=== PATIENT | female | born 1995 | race Caucasian/White ===

== ENCOUNTER 2021-05-03 10:23 | Emergency (ER) | payer BC ==
[~2021-05-03] VITALS: Ht 167.6 cm; Wt 113.0 kg
[2021-05-03 10:32] VITALS: BP 133/77
--- NOTE | 2021-05-03 10:59 | PHYS DOC ---
Past History Past Medical History: Anxiety Additional Past Medical Histor: Ovarian cyst (LENNY GARCIA ) Past Surgical History: No Surgical History (LENNY GARCIA ) Smoking: Non-smoker Alcohol Use: None Drug Use: Marijuana (LENNY GARCIA DO) General Adult EDM: Chief Complaint: ABDOMINAL PAIN HPI: HPI: Patient is a 25-year-old female who presents to the emergency department for left upper and left lower quadrant pain that started this morning at 815. She describes the pain as a sharp pain. She rates it 8 out of 10. No treatment prior to arrival. No alleviating or aggravating factors. Patient is also reporting hot feeling and chills as well as intermittent lightheadedness. Patient denies any alcohol use, nausea, vomiting, diarrhea, fevers, urinary symptoms, vaginal bleeding. Patient reports that she has a history of ovarian cyst but states that this does not feel like 1. (BHASKAR KIM APRN) Review of Systems: Review of Systems: Constitutional: negative unless reported in HPI Eyes: negative unless reported in HPI HENT: negative unless reported in HPI Respiratory: negative unless reported in HPI Cardiovascular: negative unless reported in HPI GI: negative unless reported in HPI : negative unless reported in HPI Musculoskeletal: negative unless reported in HPI Integument: negative unless reported in HPI Neurologic: negative unless reported in HPI Endocrine: negative unless reported in HPI Lymphatic: negative unless reported in HPI Psychiatric: negative unless reported in HPI (BHASKAR KIM APRN) Physical Exam: PE: Constitutional: Well developed, well nourished, no acute distress, non-toxic appearance. [] HENT: Normocephalic, atraumatic, bilateral external ears normal, oropharynx moist, no oral exudates, nose normal. [] Eyes: PERRLA, EOMI, conjunctiva normal, no discharge. [] Neck: Normal range of motion, no tenderness, supple, no stridor. [] Cardiovascular:Heart rate regular rhythm, no murmur [] Lungs & Thorax: Bilateral breath sounds clear to auscultation [] Abdomen: Bowel sounds normal, soft, obese, no rigidity, no guarding, tenderness with palpation to left upper and lower quadrant. No masses, no pulsatile masses. [] Skin: Warm, dry, no erythema, no rash. [] Back: No tenderness, no CVA tenderness. [] Extremities: No tenderness, no cyanosis, no clubbing, ROM intact, no edema. [] Neurologic: Alert and oriented X 3, normal motor function, normal sensory function, no focal deficits noted. [] Psychologic: Affect normal, judgement normal, mood normal. [] (BHASKAR KIM APRN) Current Patient Data: Labs: Laboratory Tests Test 05/03/21 11:05 05/03/21 11:25 05/03/21 11:30 White Blood Count 11.0 x10^3/uL Red Blood Count 4.25 x10^6/uL Hemoglobin 12.2 g/dL Hematocrit 37.1 % Mean Corpuscular Volume 87 fL Mean Corpuscular Hemoglobin 29 pg Mean Corpuscular Hemoglobin Concent 33 g/dL Red Cell Distribution Width 14.3 % Platelet Count 271 x10^3/uL Neutrophils (%) (Auto) 74 % Lymphocytes (%) (Auto) 15 % Monocytes (%) (Auto) 6 % Eosinophils (%) (Auto) 4 % Basophils (%) (Auto) 1 % Neutrophils # (Auto) 8.1 x10^3uL Lymphocytes # (Auto) 1.7 x10^3/uL Monocytes # (Auto) 0.7 x10^3/uL Eosinophils # (Auto) 0.5 x10^3/uL Basophils # (Auto) 0.1 x10^3/uL Sodium Level 138 mmol/L Potassium Level 4.0 mmol/L Chloride Level 104 mmol/L Carbon Dioxide Level 25 mmol/L Anion Gap 9 Blood Urea Nitrogen 12 mg/dL Creatinine 0.9 mg/dL Estimated GFR (Cockcroft-Gault) 76.9 BUN/Creatinine Ratio 13 Glucose Level 90 mg/dL Calcium Level 8.5 mg/dL Total Bilirubin 0.5 mg/dL Aspartate Amino Transf (AST/SGOT) 16 U/L Alanine Aminotransferase (ALT/SGPT) 20 U/L Alkaline Phosphatase 86 U/L Total Protein 7.5 g/dL Albumin 3.8 g/dL Albumin/Globulin Ratio 1.0 Lipase 73 U/L Urine Collection Type Clean catch Urine Color Yellow Urine Clarity Hazy Urine pH 5.5 Urine Specific [place] >=1.030 Urine Protein Neg Urine Glucose (UA) Neg mg/dL Urine Ketones (Stick) Neg mg/dL Urine Blood Large Urine Nitrite Neg Urine Bilirubin Neg Urine Urobilinogen Dipstick 0.2 mg/dL Urine Leukocyte Esterase Neg Urine RBC 11-20 /HPF Urine WBC Occ /HPF Urine Squamous Epithelial Cells Many /LPF Urine Bacteria 0 /HPF Urine Test Negative Current Medications Medications (Trade) Dose Ordered Sig/Magui Route PRN Reason Start Time Stop Time Status Last Admin Dose Admin Sodium Chloride 1,000 ml @ 1,000 mls/hr Q1H IV 05/03/21 11:00 05/03/21 11:59 DC 05/03/21 11:26 Fentanyl Citrate (Fentanyl 2ml Vial) 50 mcg 1X ONCE IVP 05/03/21 11:00 05/03/21 11:07 DC 05/03/21 11:27 Iohexol (Omnipaque 300 Mg/ml) 75 ml 1X ONCE IV 05/03/21 11:00 05/03/21 11:07 DC 05/03/21 11:09 Fentanyl Citrate (Fentanyl 2ml Vial) 50 mcg 1X ONCE IVP 05/03/21 12:00 05/03/21 12:01 DC (BHASKAR KIM APRN) EKG: EKG: [] (BHASKAR KIM APRN) Radiology/Procedures: Radiology/Procedures: []PROCEDURE: CT ABD PELV W/ IV CONTRST ONLY EXAMINATION: CT ABDOMEN+PELVIS W CLINICAL HISTORY: Left-sided abdominal pain. TECHNIQUE: CT of the abdomen and pelvis was performed using standard technique, scanning from just above the dome of the diaphragm to the symphysis pubis following administration of intravenous contrast. CT Dose Reduction Employed: One or more of the following individualized dose reduction techniques were utilized for this examination: 1. Automated exposure control 2. Adjustment of the mA and/or kV according to patient size 3. Use of iterative reconstruction technique. COMPARISON: None FINDINGS: Minimal dependent bibasilar subsegmental atelectasis. Liver, gallbladder, pancreas, spleen, adrenal glands, and kidneys unremarkable. Minimally filled urinary bladder suboptimally evaluated. Uterus and ovaries unremarkable on limited evaluation. No bowel dilation or definite wall thickening. Mild rectal stool retention. Appendix within normal limits. No abdominal aortic or iliac artery aneurysm. No evidence of acute osseous abnormality. IMPRESSION: No evidence of acute abdominopelvic abnormality. Mild rectal stool retention. Electronically signed by: Arpit Arreguin DO (05/03/2021 11:29 AM) [facility] DICTATED AND SIGNED BY: ARPIT ARREGUIN DO DATE: 05/03/21 1122 CC: NIDHI WALKER; BHASKAR KIM APRN ~MTH0 0 (BHASKAR KIM APRN) Heart Score: C/O Chest Pain: N/A Risk Factors: Risk Factors: DM, Current or recent (<one month) smoker, HTN, HLP, family history of CAD, obesity. Risk Scores: Score 0 - 3: 2.5% MACE over next 6 weeks - Discharge Home Score 4 - 6: 20.3% MACE over next 6 weeks - Admit for Clinical Observation Score 7 - 10: 72.7% MACE over next 6 weeks - Early Invasive Strategies (BHASKAR KIM APRN) Course & Med Decision Making: Course & Med Decision Making Pertinent Labs and Imaging studies reviewed. (See chart for details) [] Patient presents to the emergency department today for left upper and lower quadrant pain with symptoms of lightheadedness, chills and hot flashes. Work-up in the ER consisted of blood work, urinalysis and CT imaging of abdomen and pelvis. Patient treated with IV fluids and pain medication. Patient's blood work and urinalysis was unremarkable. CT abdomen and pelvis did not show any acute findings other than some mild constipation. She reports resolution in her pain after treatment. Patient was advised to take MiraLAX at home. She was advised to follow-up with her primary care provider. I discussed with patient all findings and diagnostic testing as well as the need to follow- up with PCP for further evaluation and treatment or return to the ER if any new or worsening symptoms. Strict return precautions were also discussed at length. Patient voiced understanding and agreement with the plan. Patient is hemo dynamically stable at the time of disposition. (BHASKAR KIM APRN) Dragon Disclaimer: Dragon Disclaimer: This electronic medical record was generated, in whole or in part, using a voice recognition dictation system. (BHASKAR KIM APRN) Departure Departure: Impression: Primary Impression: Abdominal pain Qualified Codes: R10.9 - Unspecified abdominal pain Disposition: HOME / SELF CARE / HOMELESS Condition: GOOD Referrals: NIDHI WALKER (PCP) Patient Instructions: Abdominal Pain (Nonspecific) Additional Instructions: You were seen in the emergency department today for abdominal pain. CT scan of your abdomen did show constipation. Please make sure that you are taking MiraLAX daily to help with constipation. Increase your fluids. He can take Tylenol and ibuprofen for your pain at home. Please follow-up with your primary care provider tomorrow regarding your ER visit. Return to the emergency department if you develop worsening of your abdominal pain, intractable nausea or vomiting, blood in your stools, high fevers refractory to treatment or any new or worsening concerns. Attending Signature Attending Signature I have reviewed the PA/NUCLE[employer]URITY OFFICER's note and plan of care. I was available for consultation as needed during the patient's visit in the emergency department. I agree with the clinical impression, plan, and disposition. (LENNY GARCIA DO) BHASKAR KIM APRN May 03, 2021 10:59 LENNY GARCIA DO May 03, 2021 21:39
[2021-05-03] MEDS ORDERED: IOHEXOL 300 MG/ML 75 ML VIAL. IV ONE (11:00)
[2021-05-03] MEDS ORDERED: IV NORMAL SALINE 1,000ML 1,000 ML IV SCH (11:00)
[2021-05-03 11:26] LABS: BASO # 0.1 x10^3/uL (0.0-0.2); BASO % 1 % (0-3); EOS # 0.5 x10^3/uL (0.0-0.7); EOS % 4 % (0-3); HEMATOCRIT 37.1 % (36.0-47.0); HEMOGLOBIN 12.2 g/dL (12.0-15.5); LYMPH # 1.7 x10^3/uL (1.0-4.8); LYMPH % 15 % (24-48); MEAN CORPUSCULAR HEMOGLOBIN 29 pg (25-35); MEAN CORPUSCULAR HGB CONC 33 g/dL (31-37); MEAN CORPUSCULAR VOLUME 87 fL (79-100); MONO # 0.7 x10^3/uL (0.0-1.1); MONO % 6 % (0-9); NEUT # 8.1 x10^3uL (1.8-7.7); NEUT % 74 % (31-73); PLATELET COUNT 271 x10^3/uL (140-400); RED BLOOD COUNT 4.25 x10^6/uL (3.50-5.40); RED CELL DISTRIBUTION WIDTH 14.3 % (11.5-14.5)
--- NOTE | 2021-05-03 11:32 | RAD ---
EXAMINATION: CT ABDOMEN+PELVIS W CLINICAL HISTORY: Left-sided abdominal pain. TECHNIQUE: CT of the abdomen and pelvis was performed using standard technique, scanning from just ab ove the dome of the diaphragm to the symphysis pubis following administration of intravenous contrast . CT Dose Reduction Employed: One or more of the following individualized dose reduction techniques wer e utilized for this examination: 1. Automated exposure control 2. Adjustment of the mA and/or kV ac cording to patient size 3. Use of iterative reconstruction technique. COMPARISON: None FINDINGS: Minimal dependent bibasilar subsegmental atelectasis. Liver, gallbladder, pancreas, spleen, adrenal glands, and kidneys unremarkable. Minimally filled urinary bladder suboptimally evaluated. Uterus and ovaries unremarkable on limited e valuation. No bowel dilation or definite wall thickening. Mild rectal stool retention. Appendix within normal li mits. No abdominal aortic or iliac artery aneurysm. No evidence of acute osseous abnormality. IMPRESSION: No evidence of acute abdominopelvic abnormality. Mild rectal stool retention. Electronically signed by: Arpit Cornell DO (05/03/2021 11:29 AM) [facility]
[2021-05-03 11:36] LABS: CALCIUM 8.5 mg/dL (8.5-10.1); CREATININE 0.9 mg/dL (0.6-1.0); GFR 76.9
[2021-05-03 11:43] LABS: ALBUMIN 3.8 g/dL (3.4-5.0); TOTAL BILIRUBIN 0.5 mg/dL (0.2-1.0); TOTAL PROTEIN 7.5 g/dL (6.4-8.2)
[2021-05-03 12:12] LABS: CLARITY,URINE HAZY; COLOR,URINE YELLOW
[2021-05-03 12:13] LABS: BACTERIA,URINE 0 /HPF (0-FEW); BILIRUBIN,URINE NEG (NEG); GLUCOSE,URINE NEG (NEG); NITRITE,URINE NEG (NEG); SQUAMOUS EPITHELIAL CELL,UR MANY /LPF; UROBILINOGEN,URINE 0.2 mg/dL (0.2 mg/dL); WBC,URINE OCC /HPF (0-4)
[2021-05-03 12:19] LABS: U PREG PATIENT NEGATIVE (NEG)
== END 2021-05-03 12:44 | disposition home or self-care (01) ==
LOC: ER 10:23
DX: R10.32 Left lower quadrant pain (principal); R10.12 Left upper quadrant pain; R42 Dizziness and giddiness
CPT/HCPCS: 36415; 74177; 80053; 81001; 81025; 83690; 85025; 96361; 96374; 99285; J3010; J7030; Q9967